=== PATIENT | male | born 1985 | race Caucasian/White ===

== ENCOUNTER 2017-11-04 20:54 | Emergency (ER) | payer SELFPAY | END 2017-11-04 23:00 | disposition left against medical advice (07) | LOC: ED 20:54 | DX: R50.9 Fever, unspecified (principal); Z53.21 Procedure and treatment not carried out due to patient leaving prior to being seen by health care provider ==

== ENCOUNTER 2017-11-05 15:51 | Emergency (ER) | payer SELFPAY ==
[2017-11-05 16:23] VITALS: BP 151/93
== END 2017-11-05 17:59 | disposition left against medical advice (07) ==
LOC: ED 15:51
DX: J11.1 Influenza due to unidentified influenza virus with other respiratory manifestations (principal); Z53.21 Procedure and treatment not carried out due to patient leaving prior to being seen by health care provider